=== PATIENT | female | born 1990 | race Caucasian/White ===

== ENCOUNTER 2020-12-28 08:12 | Emergency (ER) | payer OTHER ==
[~2020-12-28] VITALS: Ht 182.9 cm; Wt 102.1 kg
[~2020-12-28 08:12] MED LIST: KEFLEX500 MG PO; NEXIUM40 MG PO; NOHOMEMEDICATIONS; TRAMADOL 50 MG50 MG PO
[2020-12-28 08:19] VITALS: BP 129/79
[2020-12-28] MEDS ORDERED: HYDROCODON-ACE1 EAC7 PO (08:42)
[2020-12-28] MEDS ORDERED: PENICILLIN VK500 MG PO (08:42)
== END 2020-12-28 08:56 | disposition home or self-care (01) ==
LOC: M.ERS 08:12
DX: K08.89 Other specified disorders of teeth and supporting structures (principal); F12.90 Cannabis use, unspecified, uncomplicated